=== PATIENT | female | born 1950 | race Caucasian/White ===

== ENCOUNTER → 2023-10-03 13:10 | Outpatient (REF) | payer MEDICARE, OTHER, SELFPAY | LOC: HWRAD 13:10 | PROVIDERS: ATTENDING PHYSICIAN Nurse Practitioner Family | DX: R07.81 Pleurodynia (principal); I48.0 Paroxysmal atrial fibrillation | CPT/HCPCS: 71101; 93005 ==

== ENCOUNTER → 2023-10-05 09:27 | Outpatient (REF) | payer MEDICARE, OTHER, SELFPAY ==
[2023-10-05 12:17] LABS: Urine Albumin Negative (Neg - Trace); Urine Bilirubin 1+ (Negative); Urine Character Clear (Clear); Urine Color Yellow; Urine Glucose Negative (Negative); Urine Ketone Negative (Negative); Urine Leukocyte 2+ (Negative); Urine Nitrite Negative (Negative); Urine Occult Blood Negative (Negative); Urine Urobilinogen Negative (Neg - 1+)
[2023-10-05 12:50] LABS: % Basophils 0.7 % (0-2); % Eosinophils 3.3 % (0-6); % Immature Granulocytes 0.2 % (0-0.5); % Lymphocytes 31.4 % (20.5-51.1); % Monocytes 11.2 % (1.7-9.3); % Neutrophils 53.2 % (42.2-75.2); Absolute Eosinophils 0.1 10^3/uL (0-0.7); Absolute Lymphocytes 1.4 10^3/uL (1.2-3.4); Absolute Monocytes 0.5 10^3/uL (0.1-0.6); Absolute Neutrophils 2.3 10^3/uL (1.4-6.5); Hematocrit 35.8 % (37.0-47.0); Hemoglobin 11.5 g/dL (12.0-16.0); Mean Corp Hgb Conc. 32.1 g/dL (33.0-37.0); Mean Corpuscular Hgb 29.8 pg (27.0-31.0); Mean Corpuscular Volume 92.7 fL (81.0-99.0); Mean Platelet Volume 12.2 fL (7.4-10.4); Nucleated Red Blood Cells % 0 %; Platelet Count 193 10^3/uL (130-400); Red Blood Cell Count 3.86 10^6/uL (4.20-5.40); Red Cell Dist. Width 14.3 % (11.5-14.5); White Blood Cell Count 4.3 10^3/uL (4.8-10.8)
[2023-10-05 13:15] LABS: Urine Squamous Cell >30 /LPF (Few)
[2023-10-05 13:16] LABS: Urine Amorphous Seen
[2023-10-05 13:17] LABS: Urine Red Blood Cell 0-2 /HPF (0-2)
[2023-10-05 13:33] LABS: ALT (SGPT) 26 U/L (0-35); AST (SGOT) 36 U/L (14-36); Albumin 4.3 g/dl (3.5-5.0); Alkaline Phosphatase 93 U/L (38-126); Blood Urea Nitrogen 20 mg/dl (7-17); Calcium 9.5 mg/dl (8.4-10.2); Carbon Dioxide 28 mmol/L (22-30); Chloride 105 mmol/L (98-107); Glucose 80 mg/dl (70-99); Potassium 4.5 mmol/L (3.5-5.1); Sodium 140 mmol/L (135-145); Total Bilirubin 0.7 mg/dl (0.2-1.3); Total Protein 6.9 g/dl (6.3-8.2); eGFR > 60.00
[2023-10-05 14:04] LABS: Amylase 71 U/L (30-110); Lipase 156 U/L (23-300)
[2023-10-06 12:18] LABS: Iron 106 ug/dl (37-170)
[2023-10-06 13:08] LABS: Ferritin 9.5 ng/ml (11.1-264.0)
[2023-10-06 13:40] LABS: Folate > 20.0 ng/ml (2.76-20); Vitamin B12 507 pg/ml (239-931)
== END ==
LOC: HWLAB 09:27
PROVIDERS: ATTENDING PHYSICIAN Nurse Practitioner Family
DX: M54.6 Pain in thoracic spine (principal); I48.0 Paroxysmal atrial fibrillation; I10 Essential (primary) hypertension; E78.2 Mixed hyperlipidemia; R78.89 Finding of other specified substances, not normally found in blood; Z79.899 Other long term (current) drug therapy
CPT/HCPCS: 36415; 80053; 81003; 81015; 82150; 82607; 82728; 82746; 83540; 83690; 85025; 86141; 87086

== ENCOUNTER → 2025-02-26 12:53 | Outpatient (REF) | payer MEDICARE, OTHER, SELFPAY ==
[2025-02-26 16:57] LABS: Urine Character Clear (Clear)
[2025-02-26 18:15] LABS: Urine Red Blood Cell 0-2 /HPF (0-2); Urine Squamous Cell 0-2 /LPF (Few); Urine White Cell 0-2 /HPF (0-5)
== END ==
LOC: CLAB 12:53
PROVIDERS: ATTENDING PHYSICIAN Nurse Practitioner Family
DX: R10.12 Left upper quadrant pain (principal)
CPT/HCPCS: 81003; 81015